=== PATIENT | female | born 1985 | race Caucasian/White ===

== ENCOUNTER 2020-11-06 14:30 | Inpatient (IN) | payer OTHER ==
[~2020-11-06] VITALS: Ht 170.2 cm; Wt 121.6 kg
[2020-11-06] MEDS ORDERED: CELEXA10 MG PO (15:20)
[2020-11-06] MEDS ORDERED: PRENAVITE1 TAB PO (15:20)
--- NOTE | 2020-11-06 19:45 | NUR ---
PT RESTING IN BED. VSS. PT DENIES NEEDS AT THIS TIME.
[2020-11-06 21:33] LABS: NITRITE NEGATIVE (NEGATIVE)
[2020-11-06 21:34] LABS: BILIRUBIN NEGATIVE (NEGATIVE); KETONE MODERATE mg/dL (NEGATIVE); UROBILINOGEN NORMAL mg/dL (< 2)
[2020-11-06 21:51] LABS: WHITE CELLS - URINE 0-5 HPF (0-4)
[2020-11-06 21:52] LABS: BACTERIA MODERATE HPF (NONE SEEN); SQUAMOUS EPITHELIAL 0-5 HPF (0-4)
[2020-11-07 09:19] LABS: BASOPHILS 0.4 % (0-2); EOSINOPHILS 0 % (0-7); HEMATOCRIT 33.7 % (36.0-48.0); HEMOGLOBIN 11.3 g/dL (12-16); LYMPHOCYTES 9.5 % (15-50); MCHC 33.6 g/dL (31.0-37.0); MCV 89.4 fL (80.0-100.0); MEAN PLATELET VOLUME 9.5 fL (7.4-10.4); MONOCYTES 3.6 % (2-11); NEUTROPHILS 86.5 % (40-80); PLATELET COUNT 258 10x3/uL (130-400); RBC 3.77 10x6/uL (4.00-5.40); RDW 14.3 % (11.5-14.5); WBC 11.2 10x3/uL (4.8-10.8)
[2020-11-07 09:30] VITALS: BP 108/61; Ht 170.2 cm; Wt 121.6 kg
[2020-11-07 11:59] LABS: UDS - AMPHET NEGATIVE QUAL (NEGATIVE); UDS - BARB NEGATIVE QUAL (NEGATIVE); UDS - BENZO NEGATIVE QUAL (NEGATIVE); UDS - COCAINE NEGATIVE QUAL (NEGATIVE); UDS - OPIATE NEGATIVE QUAL (NEGATIVE); UDS - PCP NEGATIVE QUAL (NEGATIVE); UDS - THC NEGATIVE QUAL (NEGATIVE)
--- NOTE | 2020-11-07 15:22 | NUR ---
HAIR CLIPPED AND PT UP TO RESTROOM TO VOID AND PERFORM FULL BODY SCRUB WITH CHLORAHEXIDINE WIPES.
--- NOTE | 2020-11-07 21:50 | NUR ---
RCVD PT FROM OR. REPORT RCVD FROM A BIRCH, SERVICES COORDINATOR AND OR CREW. PT DENIES PAIN AT THIS TIME. UNABLE TO MOVE BLE DUE TO SPINAL BLOCK. VSS. BED LOW, WHEELS LOCKED, CL AND PHONE WITHIN REACH, SIDE RAILS UP X2.
--- NOTE | 2020-11-08 00:35 | NUR ---
LAB TO ROOM AT THIS TIME FOR TIMED CBC. PT DENIES NEEDS AT THIS TIME. WILL CONTINUE TO MONITOR.
[2020-11-08 00:54] LABS: HEMATOCRIT 31.8 % (36.0-48.0); HEMOGLOBIN 10.7 g/dL (12-16)
--- NOTE | 2020-11-08 03:15 | NUR ---
TORADOL 30 MG SIVP GIVEN FOR PAIN RATED 6/10 AT THIS TIME. IMODIUM GIVEN PER REQUEST. PT DENIES FURTHER NEEDS AT THIS TIME. WILL CONTINUE TO MONITOR.
--- NOTE | 2020-11-08 05:13 | NUR ---
CURRENT FLUID INFUSION COMPLETE. OLD BAG DOWN, NEW BAG UP TO PRESENT TUBING SET TO INFUSE AT 125 ML/HR. PT RATES PAIN 3/10 AND TOLERABLE. PT DENIES FURTHER NEEDS AT THIS TIME.
--- NOTE | 2020-11-08 06:33 | NUR ---
RN TO BEDSIDE. CORRALES CATHETER EMPTIED. PERIPADS CHANGED. FUNDUS REMAINS FIRM. PT DENIES PAIN OR NEEDS.
--- NOTE | 2020-11-08 07:15 | NUR ---
AM ASSESSMENT COMPLETED SEEN ON FLOWSHEET. PT RATES PAIN AT 0/10 AT THIS TIME. FUNDUS FIRM AT U/U WITH LIGHT BLEEDING AND NO CLOTS WITH MASSAGE. CORRALES CATH IN PLACE, SCD BILAT ON PUMP. BIKINI INCISION CLEAN AND DRY. PT ABLE TO SHOW USE OF INCENTIVE SPIROMETER UPON REQUEST AND COUGH X 2. LARGE ICE WATER UPON REQUEST. SIDE RAILS UP X 2 WITH CALL LIGHT IN REACH.
[2020-11-08 07:43] VITALS: BP 109/69
[2020-11-08 08:00] LABS: BASOPHILS 0.1 % (0-2); EOSINOPHILS 0 % (0-7); HEMATOCRIT 30.8 % (36.0-48.0); HEMOGLOBIN 10.4 g/dL (12-16); LYMPHOCYTES 8.7 % (15-50); MCH 30.2 pg (26.0-34.0); MCHC 33.8 g/dL (31.0-37.0); MCV 89.3 fL (80.0-100.0); MONOCYTES 8.6 % (2-11); NEUTROPHILS 82.6 % (40-80); PLATELET COUNT 218 10x3/uL (130-400); RBC 3.45 10x6/uL (4.00-5.40); RDW 14.5 % (11.5-14.5); WBC 12.9 10x3/uL (4.8-10.8)
[2020-11-08 08:14] LABS: RAPID PLASMA REAGIN Non Reactive (Non Reactive)
--- NOTE | 2020-11-08 10:01 | NUR ---
RATES PAIN AT 3/10 TORDAL GIVEN SCANNED TO EMAR. PT VISITING WITH SPOUSE AT THIS TIME AND STATES SHE WILL CALL WHEN HE LEAVES SO THAT CORRALES CATH COULD BE REMOVED. IV SALINE LOCKED AT THIS TIME.
--- NOTE | 2020-11-08 12:03 | NUR ---
CALLED TO ROOM, PT STATES SHE IS READY TO TRY AND GET UP. RATES PAIN AT 4/10, MEDS GIVEN SCANNED TO EMAR. CORRALES CATH REMOVED INTACT WITH TOTAL OF 425ML CLEAR URINE NOTED. FUNDUS FIRM AT U/U WITH LIGHT BLEEDING NOTED. SHE IS ABLE TO MOVE SELF TO SITTING UP ON SIDE OF BED, DENIES NAUSEA AND NO DIZZINESS. AMB TO BATHROOM WITH LITTLE HELP FROM RN. VOIDS 200ML WITHOUT COMPLAINT. WARM WET TOWELS PROVIDED FOR RUPERTO CARE. MESH BRIEFS AND RUPERTO PAD ON, GOWN CHANGED. UNDERPAD CHANGED WHILE PT IS BRUSHING HER TEETH. AMB BACK TO BED WITH NO ASSISTANCE NEEDED. PT ABLE TO POSITION SELF IN BED, REGULAR DIET SERVED BY DIETARY, LARGE ICE WATER REQUESTED. CALL LIGHT IN REACH.
--- NOTE | 2020-11-08 13:58 | NUR ---
CALLED TO ROOM, PT STATES THAT SHE HAS GOTTEN UP TO BATHROOM. 400ML CLEAR URINE NOTED TO COLLECTION HAT. EXPLAINED THAT SHE NO LONGER HAD TO MEASURE VOIDS. LARGE ICE WATER REQUESTED. RATES PAIN AT 0/10 AT THIS TIME. CALL LIGHT IN REACH.
--- NOTE | 2020-11-08 15:02 | NUR ---
RATES PAIN AT 2-310, SCHEDULED TORDAL GIVEN SCANNED TO EMAR. PRIOR TO MED BEING GIVEN SALINE LOCK FLUSHED EASILY WITH 5ML NS. TOWELS AND BATHROOM ITEMS PLACED IN SHOWER SO THAT SHE CAN SHOWER WHEN READY. WILL NOTIFY NURSE SO THAT BED LINENS CAN BE CHANGED. SPOUSE AT BEDSIDE, CALL LIGHT IN REACH.
--- NOTE | 2020-11-08 17:02 | NUR ---
CALLED TO ROOM, PT GETTING IN TO THE SHOWER. BED LINENS CHANGED AND CLEAN GOWN PLACED ON BED IF SHE DESIRES INSTEAD OF HER OWN CLOTHING. SPOUSE REMAINS IN ROOM AND WILL CALL IF ANY ASSISTANCE IS NEEDED.
--- NOTE | 2020-11-08 18:48 | NUR ---
BEDSIDE REPORT TO 7P-7A
--- NOTE | 2020-11-08 19:00 | NUR ---
BEDSIDE SHIFT REPORT RCVD FROM Heaven MATA RN. PT LYING SUPINE WITH HOB 45 DEGREES. DENIES PAIN OR NEEDS.
[2020-11-08 19:40] VITALS: BP 100/56
--- NOTE | 2020-11-08 19:40 | NUR ---
RN TO BEDSIDE. SHIFT ASSESSMENT COMPLETED AT THIS TIME. SEE FLOWSHEET. PT RATES PAIN 2/10 AND TOLERABLE AT THIS TIME. FUNDUS REMAINS FIRM. REPORTS BLEEDING SCANT TO SMALL WITH NO CLOTS THROUGHOUT THE DAY WHEN VOIDING. LOW TRANSVERSE INCISION APPROXIMATED, C/D/I WITH NO ERYTHEMA OR EDEMA NOTED TO INCISION SITE. VSS. PT DENIES NEEDS. BED LOW, WHEELS LOCKED, CALL LIGHT AND PHONE WITHIN REACH, SIDE RAILS UP X2.
--- NOTE | 2020-11-08 20:39 | NUR ---
RN TO BEDSIDE. PT AWAKENED TO LIGHT VERBAL STIMULI. TORADOL, COLACE, MUCINEX AND SIMETHICONE GIVEN PER ORDERS. SEE EMAR FOR ADMINISTRATION. SL TO RT WRIST D/C'D AFTER TORADOL ADMINISTRATION AND FLUSHED. PRESSURE DRESSING APPLIED TO SITE. PT TOLERATED WELL. DENIES FURTHER NEEDS. WILL CONTINUE TO MONITOR.
--- NOTE | 2020-11-08 22:52 | NUR ---
ROUNDS MADE. PT RESTING SUPINE WITH HOB 30 DEGREES, EYES CLOSED, RESPIRATIONS EVEN AND UNLABORED. PT LEFT UNDISTURBED AT THIS TIME.
--- NOTE | 2020-11-09 00:44 | NUR ---
ROUNDS MADE. PT RESTING SUPINE WITH HOB 30 DEGREES. EYES CLOSED, RESPIRATIONS EVEN AND UNLABORED. PT LEFT UNDISTURBED AT THIS TIME.
--- NOTE | 2020-11-09 02:55 | NUR ---
ROUNDS MADE. PT CONTINUES TO REST SUPINE IN HOSPITAL BED. AWAKENS TO LIGHT VERBAL STIMULI. DENIES PAIN OR NEEDS AT THIS TIME.
--- NOTE | 2020-11-09 06:15 | NUR ---
ROOM CHECK COMPLETE. PT HAD JUST WOKE UP AND STATED SHE WAS ABOUT TO GO TO BATHROOM. DENIES NEEDING ANYTHING ELSE @ THIS TIME.
[2020-11-09 07:34] VITALS: BP 108/68
--- NOTE | 2020-11-09 07:34 | NUR ---
RECEIVED PT SITTING UP IN BED. AWAKE. AAO X 3. VSS. HRRR WITHOUT AUDIBLE MURMUR. BBS CLEAR. BS X 4. ABDOMEN SOFT/NON-DISTENDED. PT STATES PASSING GAS. NO BM NOTED. ABDOMINAL INCISION WITHOUT REDNESS, SWELLING OR DRAINAGE NOTED. FUNDUS FIRM AT U/1. RUBRA LOCHIA SMALL AMT. NO CLOTS OR HEAVY BLEEDING PER PT STATES. NEG HOMANS' SIGN. PPP. MILD, NON-PITTING EDEMA NOTED TO BLE. NO IV SITE NOTED. PT C/O INCISIONAL PAIN OF "5" ON 0-10 PAIN SCALE. PT PROVIDED WITH FRESH ICE WATER. NO OTHER C/O OR NEEDS VOICED. SR UP X 2. CALL LIGHT IN REACH.
--- NOTE | 2020-11-09 07:54 | NUR ---
PERCOCET 5/325 GIVEN PO ORDERED. PT INSTRUCTED ON MED. VERBALIZES UNDERSTANDING.
--- NOTE | 2020-11-09 08:00 | NUR ---
DR CASTRO TO ROOM. VISITS WITH PT.
[2020-11-09] MEDS ORDERED: PERCOCET 5-3251 TAB PO (08:37)
[2020-11-09] MEDS ORDERED: IBUPROFEN800 MG PO (08:37)
[2020-11-09] MEDS ORDERED: COLACE100 MG PO (08:38)
[2020-11-09] MEDS ORDERED: GAS-X180 MG PO (08:38)
--- NOTE | 2020-11-09 09:00 | NUR ---
DISCHARGE INSTRUCTIONS GIVEN TO PT. PT VERBALIZES UNDERSTANDING OF ALL INSTRUCTIONS. COPIES GIVEN TO PT. PT GIVEN RX FOR PERCOCET AND IBUPROFEN. ABDOMINAL BINDER PLACED ON PT. PT INSTRUCTED ON PURPOSE. VERBALIZES UNDERSTANDING. PT PREPARES FOR DISCHARGE. PT TO RECEIVE RHOGAM PRIOR TO DISCHARGE.
--- NOTE | 2020-11-09 10:00 | NUR ---
PT READY FOR DISCHARGE. DISCHARGED IN STABLE CONDITION VIA WHEELCHAIR TO PRIVATE VEHICLE.
--- NOTE | 2020-11-12 08:20 | OP ---
PATIENT NAME: JED KELLY MEDICAL RECORD: [id number] :85 LOCATION:[id number] ADMISSION DATE:11/07/20 SURGEON: LONDON CASTANO DO DATE OF OPERATION: 11/07/2020 PREOPERATIVE DIAGNOSES: A 35 weeks previa, vaginal bleeding, contractions prior . POSTOPERATIVE DIAGNOSES: A 35 weeks previa, vaginal bleeding, contractions prior . PRIMARY SURGEON: London Castnao DO ANESTHESIA: Spinal. PROCEDURE: Repeat low transverse via Pfannenstiel incision. FINDINGS: Viable male infant born at 2028, Apgars 8, 5 and 7, cephalic. No nuchal cord. Clear amniotic fluid. Boggy uterus noted and Methergine given times 2, Hemabate given times 2 IU and IM and tranexamic acid given 1 gram. Wilfred placed. SPECIMENS: Placenta, cord pH, cord blood. EBL: 1 liter. FLUIDS: Per anesthesia. URINE OUTPUT: 525 cc clear yellow urine. INFECTION PROPHYLAXIS: 2 grams Ancef and ChloraPrep. COMPLICATIONS: None. Due to continued contractions and bleeding, the patient was counseled on risks of surgery and gestation. The patient agreed to proceed with C/s and was taken to the operating room. Spinal anesthesia was administered and found to be adequate. She was prepped and draped in normal sterile fashion in dorsal supine position with leftward tilt. Pfannenstiel skin incision made with a scalpel and carried down to the underlying layer of fascia. The fascia was incised in the midline and incision extended laterally with Dahl scissors. Rectus muscle dissected off fascia, grasped with Kochers and rectus muscle dissected off sharply both of the inferior and superior aspects. Rectus muscle in the midline. Peritoneum identified and no bowel or bladder noted, entered sharply with Metzenbaum scissors in area of clear space, peritoneum with gentle traction. Bladder blade placed. Transverse incision was made on the uterus with a scalpel and extended with upward and downward traction. Infant's head brought to the incision and delivered without difficulty. No nuchal cord. Mouth and nose were suctioned. Cord was clamped and cut and handed to the waiting pediatric team nurse. Placenta was then delivered manually. Heavy bleeding noted. A dry laparotomy sponge was used to assure complete removal of placental membranes. Uterus was exteriorized and the hysterotomy OPERATIVE REPORT [id number] JED KELLY closed in a running locked fashion with good hemostasis. Some bleeding noted in the middle portion and reinforced with [id number]. Hematoma noted on left lateral side that was nonexpanding. Uterus boggy, so fundal massage was employed and Methergine given IM as well as additional Pitocin. Uterus was still boggy, so Hemabate IU given and massage employed, posterior cul-de-sac explored, irrigated and cleaned of blood clots and fluid. Attention was turned again to the uterus and still boggy. No extension or hematoma. Small bleeding noted at the right lateral side and [id number] placed, additional dose of Hemabate and Methergine given and TXA given. After these measures, uterus become firm and contracted, replaced into the abdominal cavity. Gutters cleaned with moist laparotomy sponge. Uterus inspected and hemostatic. Wilfred placed over the incision. Muscle reapproximated with 2-0 Monocryl in a running fashion. Muscle was irrigated, bleeding cauterized. Fascia closed in a running fashion with 0 Vicryl with good hemostasis. Subcutaneous layer irrigated and bleeding vessels cauterized. Plain gut used to reapproximate subcutaneous tissue and skin closed in a subcuticular fashion with 3-0 Monocryl. Dermabond applied. Pressure dressing applied. The patient tolerated the procedure well. All lap, sponge and needle counts correct times 2. The patient was taken to recovery room in stable condition. TRANSINT:[id number] Voice Confirmation ID: [id number] DOCUMENT ID: [id number] LONDON CASTANO DO at 0820 CC: [id number] DICTATION DATE: 11/09/20 1637 SHIPPING SUPPORT CLERK: 11/09/202018 DIS IN 11/09/20 [place] [id number] [place] [id number]
== END 2020-11-09 10:00 | disposition home or self-care (01) | DRG 788 ==
LOC: D.LDO 14:30 → D.LD 16:11 → D.LDO 11-07 09:28 → D.LD 11-07 09:29
PROVIDERS: Student in an Organized Health Care Education/Training Program; ADMIT Obstetrics & Gynecology; ATTEND Obstetrics & Gynecology
PROC: 10D00Z1 Extraction of Products of Conception, Low, Open Approach (ICD-10-PCS; principal; 2020-11-07 16:00)
DX: O44.03 Complete placenta previa NOS or without hemorrhage, third trimester (principal); Z3A.35 35 weeks gestation of pregnancy; Z37.0 Single live birth; O62.9 Abnormality of forces of labor, unspecified